=== PATIENT | female | born 1985 | race Caucasian/White ===

== ENCOUNTER → 2017-06-29 | Outpatient (CLI) | payer OTHER | LOC: HEART 5 09:37 | DX: R55 Syncope and collapse (principal); R00.2 Palpitations | CPT/HCPCS: 93306 ==

== ENCOUNTER → 2021-01-20 | Outpatient (CLI) | payer BC, SELFPAY ==
[~2021-01-20] MED LIST: CLARITIN10 MG PO; COLACE 100MG C100 MG PO; DOXYCYCLINE HY100 MG PO; IBUPROFEN600 MG PO; PERCOCET 5/325 T1 EA PO; PRENATAL VITAM1 EAC8 PO
== END ==
LOC: EMI 13:55
DX: R51.9 Headache, unspecified (principal); G31.9 Degenerative disease of nervous system, unspecified
CPT/HCPCS: 70553; A9577